=== PATIENT | male | born 1965 | race Caucasian/White ===

== ENCOUNTER → 2017-05-18 13:44 | Outpatient (CLI) | payer BC, SELFPAY ==
--- NOTE | 2017-05-18 13:48 | XR_ITS ---
XR ankle LT min 3V HISTORY: Pain and swelling ITS.REASON: Pain ORDERING PHYSICIAN: Alberto Gant MD PATIENT AGE: 52 years COMPARISON: None FINDINGS: No fracture or dislocation. No lytic or blastic change. There is normal mineralization.. The joint spaces are well-preserved. No significant degenerative/arthritic changes. No erosive changes evident. IMPRESSION: Negative ankle, no acute finding
== END ==
PROVIDERS: Visit Provider Orthopaedic Surgery
DX: M25.572 Pain in left ankle and joints of left foot (principal)
CPT/HCPCS: 73610

== ENCOUNTER 2021-01-28 23:32 | Emergency (ER) | payer BC, SELFPAY ==
[2021-01-28 23:34] VITALS: BP 143/94; PULSE 78; RESP 20; TEMP 37.1; O2SAT 93; BMI 23.9
--- NOTE | 2021-01-28 23:53 | XR_ITS ---
PROCEDURE INFORMATION: Exam: XR Pelvis Exam date and time: 01/28/2021 11:53 PM Age: 55 years old Clinical indication: Hip pain; Bilateral; Patient HX: Fall TECHNIQUE: Imaging protocol: XR pelvis. Views: 1 or 2 view. COMPARISON: CR PEL1V XR pelvis 1-2V 04/05/2018 12:00 AM FINDINGS: Bones/joints: No fracture. No malalignment. Degenerative changes noted in the bilateral hip joints. Soft tissues: Unremarkable. IMPRESSION: No evidence of acute osseous injury
--- NOTE | 2021-01-28 23:53 | XR_ITS ---
PROCEDURE INFORMATION: Exam: XR Chest Exam date and time: 01/28/2021 11:53 PM Age: 55 years old Clinical indication: Left-sided; Patient HX: Fall, left shoulder pain TECHNIQUE: Imaging protocol: XR of the chest. Views: 4 or more views. COMPARISON: CR CXR2V XR chest 2V 04/04/2018 11:58 PM FINDINGS: Lungs: Unremarkable. No consolidation. Pleural spaces: Unremarkable. No pleural effusion. No pneumothorax. Heart/Mediastinum: Unremarkable. No cardiomegaly. Bones/joints: Left shoulder dislocation noted. See concurrent shoulder radiograph. IMPRESSION: No acute cardiopulmonary disease
--- NOTE | 2021-01-28 23:53 | XR_ITS ---
PROCEDURE INFORMATION: Exam: XR Left Shoulder Exam date and time: 01/28/2021 11:53 PM Age: 55 years old Clinical indication: Injury or trauma; Dislocation; Patient HX: Fall, left shoulder pain, limited rom TECHNIQUE: Imaging protocol: XR Left shoulder. Views: 2 or more views. COMPARISON: CR XR CHEST AP 01/28/2021 11:59 PM FINDINGS: Bones/joints: The humerus is dislocated medially, in fairly, and anteriorly. There is a lucency running through the humeral head which is favored to be projectional. No displaced fracture. Recommend attention on follow-up. Soft tissues: Normal. IMPRESSION: Left anterior shoulder dislocation
--- NOTE | 2021-01-28 23:53 | CT_ITS ---
PROCEDURE INFORMATION: Exam: CT Head Without Contrast Exam date and time: 01/28/2021 11:53 PM Age: 55 years old Clinical indication: Pain; Headache not specified; Patient HX: Fall, headache, HX cerebral palsey TECHNIQUE: Imaging protocol: Computed tomography of the head without contrast. Radiation optimization: All CT scans at this facility use at least one of these dose optimization techniques: automated exposure control; mA and/or kV adjustment per patient size (includes targeted exams where dose is matched to clinical indication); or iterative reconstruction. COMPARISON: HEADWO CT head/brain wo con 04/04/2018 11:47 PM FINDINGS: Brain: Normal. No hemorrhage. Unremarkable white matter. No mass effect. Cerebral ventricles: No ventriculomegaly. Paranasal sinuses: Visualized sinuses are unremarkable. No fluid levels. Mastoid air cells: Visualized mastoid air cells are well aerated. Bones/joints: There is an old fracture of the left orbital roof and frontal bone which has healed without complete union. No acute fractures. Soft tissues: Unremarkable. IMPRESSION: No acute intracranial injury.
[2021-01-29] VITALS (19 sets, daily range): BP systolic 130–189; BP diastolic 82–112; PULSE 66–84; RESP 14–22; TEMP 36.7; O2SAT 94–98
--- NOTE | 2021-01-29 00:02 | CT_ITS ---
PROCEDURE INFORMATION: Exam: CT Cervical Spine Without Contrast Exam date and time: 01/29/2021 12:02 AM Age: 55 years old Clinical indication: Patient HX: Fall, neck pain TECHNIQUE: Imaging protocol: Computed tomography images of the cervical spine without contrast. Radiation optimization: All CT scans at this facility use at least one of these dose optimization techniques: automated exposure control; mA and/or kV adjustment per patient size (includes targeted exams where dose is matched to clinical indication); or iterative reconstruction. COMPARISON: [facility] CT cervical spine wo con 04/04/2018 11:54 PM FINDINGS: Vertebrae: There are moderate degenerative changes at C4-C5 through C6-C7. Normal alignment. No acute fractures. Soft tissues: Unremarkable. Lungs: Lung apices are normal. IMPRESSION: No acute injury.
[2021-01-29 00:11] LABS: Basophils # 0.1 K/mm3 (0-0.2); Eosinophils # 0.2 K/mm3 (0.0-0.4); Eosinophils % 1.7 % (0.1-12.0); Hematocrit 46.8 % (42.0-52.0); Hemoglobin 15.5 g/dL (14.1-18.0); Lymphocytes # 1.9 K/mm3 (0.7-4.5); Lymphocytes % 17.1 % (10-50); Mean Corpuscular HGB Conc 33.2 g/dL (31.8-35.4); Mean Corpuscular Volume 96.3 fl (80-94); Mean Platelet Volume 7.2 fl (7.4-10.4); Monocytes # 0.5 K/mm3 (0.1-1.0); Monocytes % 4.9 % (1.7-9.3); Neutrophils # 8.2 K/mm3 (1.8-7.8); Neutrophils % 75.3 % (37.0-80.0); Platelet Count 323 K/mm3 (142-424); Red Blood Count 4.86 M/mm3 (4.60-6.20); Red Cell Distribution Width 13.1 % (11.5-17.5); White Blood Count 10.9 K/mm3 (4.8-10.8)
[2021-01-29 00:19] LABS: Alanine Aminotransferase 22 U/L (12-78); Albumin Level 4.4 g/dl (3.5-5.0); Albumin/Globulin Ratio 1.3 (1.1-1.8); Alkaline Phosphatase 93 U/L (38-126); Anion Gap 12.1 mEq/L (5-15); Aspartate Amino Transferase 42 U/L (17-59); Bilirubin,Total 1.1 mg/dl (0.2-1.3); Blood Urea Nitrogen 25 mg/dl (9-20); Calcium 10.2 mg/dl (8.4-10.2); Carbon Dioxide 28 mmol/L (22.0-30.0); Chloride 105 mmol/L (98-107); Creatinine Clearance Estimated 61 mL/min (50-200); Estimated Glomerular Filt Rate 63 ml/min (>60); GFR (African American) 76 ML/MIN (>60); Globulin 3.5 g/dL (1.3-3.2); Glucose 108 mg/dl (74-100); Potassium 4.1 mmoL/L (3.5-5.1); Sodium 141 mmol/L (136-145); Total Protein,Serum 7.9 g/dl (6.3-8.2)
[2021-01-29 00:24] LABS: C-Reactive Protein 9.6 mg/L (0-4)
[2021-01-29 00:38] LABS: Procalcitonin 0.067 ng/mL (0.0-2.0)
[2021-01-29 01:11] LABS: Erythrocyte Sedimentation Rate 49 mm/hr (0-20)
--- NOTE | 2021-01-29 01:18 | [facility].EDFALL ---
ED Disposition Clinical Impression: Dislocation of shoulder region Qualifiers: Encounter type: initial encounter Laterality: left Qualified Code(s): S43.005A - Unspecified dislocation of left shoulder joint, initial encounter Fall Qualifiers: Encounter type: initial encounter Qualified Code(s): W19.XXXA - Unspecified fall, initial encounter Cerebral palsy Qualifiers: Cerebral palsy type: unspecified type Qualified Code(s): G80.9 - Cerebral palsy, unspecified Disposition: Home, Self-Care Condition on Discharge: Good Instructions: DI for Shoulder Dislocation Additional Instructions: call pcp and ortho for follow up and use as josiah Referrals: Provider,MD Ganesh [Primary Care Provider] - Mendoza Peterson MD [Staff Physician] - Trevor Goddard JR, MD [Physician] - - Critical Care Critical Care Time: No Attestation: On 01/28/21, the high probability of a clinically significant, sudden or life threatening deterioration of the following system(s) required my full and direct attention, intervention and personal management. The time I documented below is in addition to time spent performing reported procedures but includes the following listed in this critical care notation. Medical Decision Making - Medical Records Medical records reviewed: Yes: I reviewed the patient's medical records. - Hany Inquiry Pt receiving controlled substance: No Vital Signs: 01/28/21 23:34 Temperature 98.8 F Temperature Source Oral Pulse Rate [Apical] 78 Respiratory Rate 20 Blood Pressure [Right Arm] 143/94 H Blood Pressure Mean [Right Arm] 110 Blood Pressure Source [Right Arm] Automatic Cuff Blood Pressure Position [Right Arm] Sitting 02 Sat by Pulse Oximetry 93 L Oxygen Delivery Method Room Air - Lab Data Lab results reviewed: Yes: I reviewed the patient's lab results. Lab Results 01/29/21 00:03: WBC 10.9 H, RBC 4.86, Hgb 15.5, Hct 46.8, MCV 96.3 H, MCH 32.0 H, MCHC 33.2, RDW 13.1, Plt Count 323, MPV 7.2 L, Neut % (Auto) 75.3, Lymph % (Auto) 17.1, Vance % (Auto) 4.9, Eos % (Auto) 1.7, Baso % (Auto) 1.0, Neut # (Auto) 8.2 H, Lymph # (Auto) 1.9, Vance # (Auto) 0.5, Eos # (Auto) 0.2, Baso # (Auto) 0.1, ESR 49 H 01/29/21 00:03: Sodium 141, Potassium 4.1, Chloride 105, Carbon Dioxide 28, Anion Gap 12.1, BUN 25 H, Creatinine 1.20, Estimated Creat Clear 61, Estimated GFR 63, Est GFR ( Amer) 76, Glucose 108 H, Calcium 10.2, Total Bilirubin 1.1, AST 42, ALT 22, Alkaline Phosphatase 93, C-Reactive Protein 9.6 H, Total Protein 7.9, Albumin 4.4, Globulin 3.5 H, Albumin/Globulin Ratio 1.3, Procalcitonin 0.067 Result diagrams: 01/29/21 00:03 01/29/21 00:03 Orders (Tests/Meds): ED MEDICATIONS Discontinued Medications Generic Name Dose Route Start Last Admin Trade Name Freq PRN Reason Stop Dose Admin Ketorolac Tromethamine 30 mg 01/28/21 23:53 01/29/21 00:37 Ketorolac 30mg/Ml Vial IV 01/28/21 23:54 30 mg ONCE ONE Administration Methylprednisolone Sodium Succinate 125 mg 01/28/21 23:53 01/29/21 00:37 Methylprednisolone Sod Succ 125mg Vial IV 01/28/21 23:54 125 mg ONCE ONE Administration - Radiology Data #1 Image(s): Chest, Shoulder, Pelvis Image Reviewed: Yes I have reviewed radiologist's interpretation Preliminary Findings: Abnormal, No Fracture Seen (lt shoulder dislocation) - CT Data CT Scan: Head, C-Spine Time Received: 02:[address] Reviewed: Yes: I have viewed the radiologist's interpretation Preliminary Findings: No Fracture Seen Medical Decision Narrative: reduced and no fx and placed in sling Fall HPI - General Chief Complaint: Fall Stated Complaint: AO 01/27/21 22:00 Left Shoulder injury Time Seen by Provider: 01/29/21 00:00 Mode of Arrival: Wheelchair Source of Information: Patient, Relative, Medical Record Limitations: Physical Limitations Description of Symptoms (Recalled from ER Triage Doc. by RN): Patient with a hx of cerebral palsy states that on Tuesday
--- NOTE | 2021-01-29 01:44 | XR_ITS ---
PROCEDURE INFORMATION: Exam: XR Left Shoulder Exam date and time: 01/29/2021 1:44 AM Age: 55 years old Clinical indication: Pain; Shoulder; Left; Patient HX: Post reduction TECHNIQUE: Imaging protocol: XR Left shoulder. Views: 1 view. COMPARISON: CR XR SHOULDER LT MIN 2V 01/29/2021 12:00 AM FINDINGS: Bones/joints: There is near anatomic alignment reduction of the previously seen dislocation. The humeral head is seated in the glenoid, however, the acromial humeral space is still widened. No fractures. Soft tissues: Normal. IMPRESSION: Partial reduction the previously seen shoulder dislocation.
--- NOTE | 2021-01-29 02:58 | XR_ITS ---
PROCEDURE INFORMATION: Exam: XR Left Shoulder Exam date and time: 01/29/2021 2:58 AM Age: 55 years old Clinical indication: Screening exam; Post reduction; Additional info: #2 post reduction TECHNIQUE: Imaging protocol: XR Left shoulder. Views: 1 view. COMPARISON: CR XR SHOULDER LT 1V 01/29/2021 1:52 AM FINDINGS: Bones/joints: There is now anatomic alignment with the humeral head seated in the glenoid and a normal acromial humeral space. No fractures. Soft tissues: Mild soft tissue swelling in the deltoid muscle. IMPRESSION: Normal anatomic alignment post reduction of previous dislocation. No fractures.
== END 2021-01-29 03:40 | disposition home or self-care (01) ==
PROVIDERS: Emergency Provider Emergency Medicine
DX: S43.005A Unspecified dislocation of left shoulder joint, initial encounter (principal); G80.9 Cerebral palsy, unspecified; W01.190A Fall on same level from slipping, tripping and stumbling with subsequent striking against furniture, initial encounter; Y92.039 Unspecified place in apartment as the place of occurrence of the external cause
CPT/HCPCS: 23655; 70450; 71045; 72125; 72170; 73020; 73030; 80053; 84145; 85025; 85651; 86140; 96374; 96375; 99152; 99153; 99285

== ENCOUNTER → 2022-01-07 15:50 | Outpatient (CLI) | payer BC, SELFPAY ==
--- NOTE | 2022-01-07 16:01 | XR_ITS ---
FINAL REPORT CLINICAL HISTORY: PAIN IN UPPER R ARM, INJURY OF TENDON OF BICEPS FINDINGS: 2 views of the right humerus were obtained. There is no acute fracture or dislocation. The joint spaces appear intact. There is no acute soft tissue abnormality. IMPRESSION: No acute process. Reviewed, Interpreted and Dictated by Castro Orlando III, MD Transcribed by Nathaniel Guerrero Authenticated and . [facility]
== END ==
PROVIDERS: PCP Nurse Practitioner Family; Visit Provider Nurse Practitioner Family
DX: M79.621 Pain in right upper arm (principal); S46.202A Unspecified injury of muscle, fascia and tendon of other parts of biceps, left arm, initial encounter
CPT/HCPCS: 73060